=== PATIENT | male | born 1990 | race Caucasian/White ===

== ENCOUNTER 2020-10-08 16:08 | Emergency (ER) | payer OTHER, SELFPAY ==
--- NOTE | ~2020-10-08 | CT_ITS ---
EXAMINATION: CT ANGIOGRAM OF THE CHEST WITH AND WITHOUT CONTRAST (CT PULMONARY ANGIOGRAM FOR PE) CLINICAL INFORMATION: Reason for Exam Pleuritic chest pain, near syncope, rule out PE COMPARISON: Chest x-ray October 08, 2020 TECHNIQUE: Prior to contrast administration, noncontrast localization images were obtained. Subsequently, multidetector volumetric imaging was performed from the thoracic inlet to below the diaphragms following the administration of 65 mL Omnipaque 350 intravenous contrast. No contrast reaction reported Sagittal, coronal, and MIP oblique sagittal reformatted images were obtained on the CT workstation, uploaded to PACS, and reviewed. This CT examination was performed using dose optimization techniques as appropriate, variously including the following: *Automated exposure control *Adjustment of mA and/or kV according to patient size (this includes techniques or standardized protocols for targeted exams where dose is matched to indication/reason for exam; i.e. extremities or head) *Use of iterative reconstruction technique Total exam dose-length product 238 mGy-cm FINDINGS: QUALITY OF STUDY/CONTRAST BOLUS: Satisfactory. PULMONARY ARTERIES: No central or segmental pulmonary emboli. THORACIC AORTA: No aneurysm or dissection. LUNG: No focal consolidation, nodules or masses. PLEURA: No pleural effusion or pneumothorax. MEDIASTINUM: Normal heart size. No pericardial effusion. No hilar or mediastinal lymphadenopathy. No evidence of septal bowing or right heart strain. CHEST WALL/AXILLA: No axillary or internal mammary lymphadenopathy. OSSEOUS STRUCTURES: No acute or suspicious osseous abnormality. UPPER ABDOMEN: Unremarkable. No reflux of contrast into the hepatic veins to suggest elevated right heart pressures. CT/CT angio chest PE protocol IMPRESSION: Normal CT of chest. No evidence of pulmonary embolism. VTE: negative
--- NOTE | ~2020-10-08 | XR_ITS ---
EXAMINATION: XR CHEST CLINICAL INFORMATION: Chest pain COMPARISON: 05/09/2012 TECHNIQUE: Frontal view of the chest was obtained. FINDINGS: No significant abnormality is noted involving the heart, lungs, mediastinum, bony thorax or soft tissues. XR/XR chest 1V IMPRESSION: Unremarkable examination.
--- NOTE | 2020-10-08 16:17 | ECG_ITS ---
Test Reason : CHEST PAIN Blood Pressure : / mmHG Vent. Rate : 082 BPM Atrial Rate : 082 BPM P-R Int : 156 ms QRS Dur : 086 ms QT Int : 380 ms P-R-T Axes : 049 028 030 degrees QTc Int : 443 ms Normal sinus rhythm Normal ECG When compared with ECG of 11-JAN-2009 12:08, Vent. rate has increased BY 31 BPM Nonspecific T wave abnormality now evident in Inferior leads Referred By: Generic ED Physician Electronically Signed By:MELY WHITE
[2020-10-08 16:29] LABS: MANUAL DIFF FLAG NO
[2020-10-08 16:30] LABS: Basophils Percent Auto 0.2 % (0-2); Eosinophils Absolute Auto 0.1 X10*3/uL (0.0-0.4); Eosinophils Percent Auto 0.7 % (0-4); Hematocrit 40.1 % (42-52); Hemoglobin 12.9 g/dl (14.0-18.0); Imm Gran Abs Auto 0.03 X10*3/uL (0.00-0.03); Imm Gran Pct Auto 0.3 % (0.0-0.4); Lymphocytes Absolute Auto 1.6 X10*3/uL (1.2-4.9); Lymphocytes Percent Auto 16.8 % (20-40); Mean Corpuscular HGB Conc 32.2 g/dl (31.0-36.0); Mean Corpuscular Hemoglobin 26.5 pg (27.0-33.0); Mean Corpuscular Volume 82.5 fL (80-98); Mean Platelet Volume 9.7 fL (9.4-12.4); Monocytes Absolute Auto 0.4 X10*3/uL (0.1-1.2); Monocytes Percent Auto 4.7 % (2-11); Neutrophils Absolute Auto 7.2 X10*3/uL (2.0-8.3); Neutrophils Percent Auto 77.3 % (45-73); Platelet Count 311 X10*3/uL (160-400); Red Blood Count 4.86 X10*6/uL (4.60-5.80); Red Cell Distribution Width 14.1 % (11.0-16.0); White Blood Count 9.4 X10*3/uL (4.8-10.8)
[2020-10-08 16:58] VITALS: BP 117/69; PULSE 82; RESP 18; TEMP 37.1; O2SAT 98; BMI 26.4
[2020-10-08 17:03] LABS: Anion Gap 13 (12-20); Blood Urea Nitrogen 9 mg/dL (9-16); Calcium 9.6 mg/dL (8.4-10.2); Carbon Dioxide 29 mmol/L (22-29); Chloride 103 mmol/L (96-108); Creatinine Clr Calc Pharmacy 136.1; Estimated Glomerular Filt Rate > 60; Glucose Random 117 mg/dL (60-115); Potassium 4.4 mmol/L (3.3-5.1); Sodium 141 mmol/L (135-145)
[2020-10-08 17:08] LABS: Troponin-I High Sensitivity < 3.5 ng/L (<3.5-35.0)
--- NOTE | 2020-10-08 22:19 | ED_ITS ---
HPI - Chest Pain General Chief Complaint: Chest Pain Stated Complaint: chest pain, dizziness Time Seen by Provider: 10/08/20 21:58 Source: patient Mode of arrival: ambulatory Limitations: no limitations History of Present Illness HPI narrative: 30-year-old male who presents emergency department for evaluation of palpitations, chest pain and near syncope. 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 His shift started at 4:00 a.m. 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 He states that his vision be came blurred and then went peters and then black. He states that he felt he was going to pass out but did not lose consciousness. He felt like his heart was beating rapidly. He also developed a tightness in his chest. States that the 1st episode lasted approximately 2-3 minutes. He then had a 2nd episode with similar symptoms. The patient then went home. He states that the tightness in his chest persisted. He states that the tightness is located throughout his anterior chest and is worse with breathing. He denied shortness of breath or dyspnea on exertion. He states he did have a mild headache associated with the symptoms as well. The patient had a COVID-19 infection approximately 3 and half months prior. He states that he was sick for 3 weeks and felt short of breath and had dyspnea on exertion. He has not had any pain or swelling in his lower extremities. He states that his father has had lower extremity DVTs. The patient believes that blood clots may run in his family but cannot be more specific. Related Data Allergies Allergy/AdvReac Type Severity Reaction Status Date / Time No Known Allergies Allergy Verified 10/08/20 16:57 Review of Systems Review of Systems: Yes all other systems are reviewed and are negative PENDING SALE TO [facility] Past Medical History PENDING SALE TO [facility] Narrative: Past medical history: History heroin use disorder, the patient is currently on methadone and has not used heroin in 4 years. Past surgical history: None. 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 States that he vapes nicotine 20 times a day. He denies alcohol use. Patient states that he is in recovery from heroin use and is not in used in 4 years. Social History Social History Advance Directives: No Advance Directives Information Provided: Yes Physical Exam Vital Signs: Vital Signs: Last Vital Signs Temp 98.7 F 10/08/20 16:58 Pulse 62 10/09/20 00:05 Resp 16 10/09/20 00:05 BP 129/69 10/09/20 00:05 Pulse Ox 98 10/09/20 00:05 Body Mass Index 26.4 Const: General: cooperative and no acute distress Orientation/consciousness: oriented to person and oriented to place Limitations: no limitations HENMT: Head: Yes normal to inspection, Yes normocephalic and Yes atraumatic Ears: external ears normal General nose exam: Normal external nose present Face and sinus: Yes normal facial exam Mouth: Normal oral and palatal mucosa present Throat: Yes posterior oropharynx normal Eyes: General: appearance normal, both eyes and all related structures Pupils: Equal, round and reactive pupils present Neck: Neck: Yes normal visual inspection, Yes no lymphadenopathy, Yes trachea midline and Yes supple Chest: Chest palpation & inspection: normal inspection of the chest and normal palpation of entire chest wall Resp: Effort & Inspection: normal respiratory effort and able to speak in complete sentences Auscultation: clear to auscultation bilaterally Cardio: Rate: regular rate Rhythm: regular rhythm Heart sounds: S1 normal heart sound present, S2 normal heart sound present and no murmurs GI: Inspection: Yes normal to inspection Palpation (GI): Soft to palpation, nontender and no guarding Auscultation: normal bowel sounds : General: Yes no CVA tenderness Back/Spine/Pelvis: Back: no CVA tenderness Skin: General skin exam: no rashes or lesions noted Neuro: General: oriented to person and oriented to place Cranial nerves: Yes CN's II-XII intact bilaterally and Yes Equal, round and reactive pupils present Cognition (Neuro): normal cognition Motor exam (neuro): 5/5 motor strength present throughout Extrem: General: Yes normal to inspection Psych: Appearance: grossly normal Speech and movement: Normal speech and movement present Affect: normal affect Attitude: cooperative Thought process: Normal thought process present Thought content: Normal thought content present Course Course Course Narrative: 30-year-old male who presents emergency department for evaluation of 2 near syncopal episodes with change in vision, tachycardia, shortness of breath and pleuritic chest pain. The patient had a COVID-19 infection 3 and half months prior. States that he was sick for 3 weeks but did not require hospitalization. The patient's vital sign were normal. Physical examination was unremarkable. Twelve EKG revealed no significant abnormalities. Chest x-ray was normal. IM concerned this patient may have a pulmonary embolism as cause of his symptoms therefore a CT pulmonary angiogram PE protocol was ordered. 0005: The patient's CT pulmonary angiogram was negative for PE. The patient's symptoms are consistent with near syncope. The patient will need a palpitation workup as an outpatient and I did discuss this with him. He was advised to avoid caffeine and to make sure that he stays hydrated and eat prior to going to work. The patient was discharged home. The patient was given verbal and printed instructions prior to discharge. The patient was advised to follow-up with his PCP in 2 days and to return to the emergency department if his symptoms get worse or if he develops any new symptoms that are concerning to him. MDM - Chest Pain Lab Data Result diagrams: 10/08/20 16:10/08/20 16: Labs: Lab Results 10/08/20 10/08/20 10/08/20 Range/Units 16: 16: 16:22 WBC 9.4 (4.8-10.8) X10*3/uL RBC 4.86 (4.60-5.80) X10*6/uL Hgb 12.9 L (14.0-18.0) g/dl Hct 40.1 L (42-52) % MCV 82.5 (80-98) fL MCH 26.5 L (27.0-33.0) pg MCHC 32.2 (31.0-36.0) g/dl RDW 14.1 (11.0-16.0) % Plt Count 311 (160-400) X10*3/uL MPV 9.7 (9.4-12.4) fL Immature Gran % (Auto) 0.3 (0.0-0.4) % Neut % (Auto) 77.3 H (45-73) % Lymph % (Auto) 16.8 L (20-40) % [place] % (Auto) 4.7 (2-11) % Eos % (Auto) 0.7 (0-4) % Baso % (Auto) 0.2 (0-2) % Lymph # (Auto) 1.6 (1.2-4.9) X10*3/uL [place] # (Auto) 0.4 (0.1-1.2) X10*3/uL Eos # (Auto) 0.1 (0.0-0.4) X10*3/uL Baso # (Auto) 0.0 (0.0-0.2) X10*3/uL Abs Immat Gran (auto) 0.03 (0.00-0.03) X10*3/uL Absolute Neuts (auto) 7.2 (2.0-8.3) X10*3/uL Absolute Nucleated RBC 0.000 (0.0-0.012) X10*3/uL Nucleated RBC % (auto) 0.0 (0.0-0.2) /100WBC Sodium 141 (135-145) mmol/L Potassium 4.4 (3.3-5.1) mmol/L Chloride 103 (96-108) mmol/L Carbon Dioxide 29 (22-29) mmol/L Anion Gap 13 (12-20) BUN 9 (9-16) mg/dL Creatinine 0.88 (0.5-1.4) mg/dL Estim Creat Clear Calc 136.1 Estimated GFR > 60 Random Glucose 117 H (60-115) mg/dL Calcium 9.6 (8.4-10.2) mg/dL Troponin I High Sens < 3.5 (<3.5-35.0) ng/L ECG Data ECG #1: Attestation: I personally reviewed and interpreted this ECG as follows: Interpretation: 1612: Normal sinus rhythm with a rate of 82, normal ID interval, QRS duration and QTC interval, inverted T-wave in lead 3 and V1, no ST segment elevation, no ST segment depression, no PACs, no PVCs. This is a normal EKG. Discharge Plan Discharge Clinical Impression: Chest pain, Near syncope, Heart palpitations Patient Disposition: Home, Self-Care Instructions: Heart Palpitations (ED), Hyperventilation (ED) Additional Instructions: Your blood work was normal. Your EKG was unremarkable. Your chest x-ray was normal. The CT chest pulmonary angiogram revealed no pulmonary embolism or other abnormalities of your lungs. These normal tests are reassuring. When you feel your heartbeat this is called palpitations. You will need to follow-up with her doctor for further evaluations of your palpitations. You should avoid using caffeine. Increase your fluid intake to prevent dehydration. Make sure you eat before you go to work. Follow-up with your doctor in 2 days. Please return to the emergency department if your symptoms get worse or if you develop any symptoms that are concerning to you.
[2020-10-08] MEDS: 0.9 % Sodium Chloride 1,000 ML 999 ML IV (22:27)
[2020-10-08] MEDS: iohexoL 350 MG/ML 100 ML INFUS..BTL 65 ML IV (23:22)
[2020-10-09 00:05] VITALS: BP 129/69; PULSE 62; RESP 16; O2SAT 98
== END 2020-10-09 00:53 | disposition home or self-care (01) ==
PROVIDERS: Emergency Provider Emergency Medicine Emergency Medical Services
DX: R07.9 Chest pain, unspecified (principal); R55 Syncope and collapse; R00.2 Palpitations; R06.02 Shortness of breath; F11.20 Opioid dependence, uncomplicated; F17.290 Nicotine dependence, other tobacco product, uncomplicated; Z86.16 Personal history of COVID-19
CPT/HCPCS: 36415; 71045; 71275; 80048; 84484; 85025; 93005; 96360; 99283; 99284; Q9967

== ENCOUNTER 2020-10-15 22:48 | Emergency (ER) | payer OTHER, SELFPAY ==
--- NOTE | 2020-10-15 | ECG_ITS ---
Test Reason : DIZZINESS Blood Pressure : / mmHG Vent. Rate : 061 BPM Atrial Rate : 061 BPM P-R Int : 146 ms QRS Dur : 088 ms QT Int : 428 ms P-R-T Axes : 036 042 020 degrees QTc Int : 430 ms Normal sinus rhythm Normal ECG When compared with ECG of 08-OCT-2020 16:12, No significant change was found Referred By: Generic ED Physician Electronically Signed By:MELY WHITE
[2020-10-15 22:51] VITALS: BP 121/77; PULSE 74; RESP 18; TEMP 36.8; O2SAT 96; BMI 27.1
--- NOTE | 2020-10-15 23:30 | ED.DIZZY ---
HPI - Dizziness General Chief Complaint: Dizziness Stated Complaint: numbness in body Time Seen by Provider: 10/15/20 23:30 Source: patient Mode of arrival: ambulatory Limitations: no limitations History of Present Illness HPI Narrative: Patient can male with history of COVID 3 months ago under lot of stress was seen here 1 week ago for palpitation workup including CTA chest was negative comes here now as still feels dizzy unable to sleep sleeping only for 3-4 hours a night feel anxious sometimes with multiple complaints Related Data Previous Rx's Medication Instructions Recorded lorazepam 1 mg tablet (Ativan) 1 mg PO BEDTIME PRN #10 tab 10/15/20 Allergies Allergy/AdvReac Type Severity Reaction Status Date / Time No Known Allergies Allergy Verified 10/15/20 22:51 Review of Systems Review of Systems: Yes all other systems are reviewed and are negative [facility] Past Medical History Medical History Anxiety COVID-19 Opiate addiction Social History Social History Advance Directives: No Advance Directives Information Provided: No Physical Exam Vital Signs: Vital Signs: Last Vital Signs Temp 98.2 F 10/15/20 22:51 Pulse 74 10/15/20 22:51 Resp 18 10/15/20 22:51 BP 121/77 10/15/20 22:51 Pulse Ox 96 10/15/20 22:51 Body Mass Index 27.1 Appearance: Alert. Oriented X3. No acute distress. Anxious Eyes: PERRLA, No Nystagmus ENT: Pharynx normal. Oral Mucosa moist Neck: Normal inspection. Neck supple. CVS: Normal heart rate and rhythm. Pulses normal. Respiratory: No respiratory distress. Equal air entry bilateral, no wheezing/rales/rhonchi Abdomen: Soft and nontender. Skin: Skin warm and dry. Normal skin color. Normal skin turgor. Extremities: No lower extremity edema. No calf tenderness Neuro: Oriented X 3. No motor deficit. No sensory deficit.No cerebellar signs , cranial nerves II-XII intact MDM - Dizziness MDM Narrative Medical decision making narrative: Patient's symptoms likely from anxiety and lack of sleep will discharge patient home on Ativan Discharge Plan Discharge Clinical Impression: Anxiety Patient Disposition: Home, Self-Care Instructions: Anxiety (ED) Additional Instructions: Rest at home take medication to sleep and relax follow up with PCP Prescriptions: New lorazepam [Ativan] 1 mg tablet 1 mg PO BEDTIME PRN (Reason: anxiety) Qty: 10 RF: 0 Interventions: ED Discharge Assessment Last Done: 10/15/20 23:46 Discharge Date/Time: 10/15/20 23:48
== END 2020-10-15 23:48 | disposition home or self-care (01) ==
PROVIDERS: Emergency Provider Internal Medicine
DX: F41.9 Anxiety disorder, unspecified (principal); R42 Dizziness and giddiness; F17.210 Nicotine dependence, cigarettes, uncomplicated
CPT/HCPCS: 93005; 99283

== ENCOUNTER 2020-10-26 05:37 | Emergency (ER) | payer OTHER, SELFPAY ==
[2020-10-26 05:42] VITALS: BP 106/72; PULSE 81; RESP 18; TEMP 36.4; O2SAT 97; BMI 27.1
--- NOTE | 2020-10-26 06:09 | PC.NURSE ---
pt reporting that he been having headaches, neck pain that comes on all of a sudden. He been here recently for the same thing last week. He was told her had panic attacks. he was given benzos but her can not it due to being on Methadone. Pt reports hitting himself on the head at work. pt is sitting quietly waiting to be seen.
[2020-10-26 06:33] VITALS: RESP 16
--- NOTE | 2020-10-26 07:02 | ED.ANXIETY ---
HPI - Anxiety General Chief Complaint: Anxiety Stated Complaint: migraines, neck pain Time Seen by Provider: 10/26/20 07:00 Source: patient Mode of arrival: ambulatory History of Present Illness HPI narrative: 30-year-old male on methadone program presents with continued dizziness and having had experienced panic attacks approximately 2 weeks ago as well as chest pain which was fully evaluated. Patient denies any associated fever, chills, chest pain, shortness of breath. On triage note states that patient has not been taking the Ativan due to him being on the methadone program. Related Data Previous Rx's Medication Instructions Recorded lorazepam 1 mg tablet (Ativan) 1 mg PO BEDTIME PRN #10 tab 10/15/20 hydroxyzine HCl 25 mg tablet 25 mg PO BID PRN #7 tab 10/26/20 ketorolac 10 mg tablet 10 mg PO Q6H PRN 5 Days #20 tab 10/26/20 Allergies Allergy/AdvReac Type Severity Reaction Status Date / Time No Known Allergies Allergy Verified 10/26/20 05:41 Review of Systems Review of Systems: Pertinent positives and negatives as stated in HPI 10 point review of systems is otherwise negative. PMFSH Past Medical History Source: nursing notes reviewed Medical History Anxiety COVID-19 Opiate addiction Social History Social History Alcohol intake: never Patient Tobacco Use Status: Current someday Tobacco user Smoked in Last 30 Days: Yes Use of substances other than those prescribed or required for medical reasons: No Advance Directives: No Advance Directives Information Provided: Yes Physical Exam Vital Signs: Vital Signs: Last Vital Signs Temp 97.5 F 10/26/20 05:42 Pulse 81 10/26/20 05:42 Resp 16 10/26/20 06:33 BP 106/72 10/26/20 05:42 Pulse Ox 97 10/26/20 05:42 Body Mass Index 27.1 VITAL SIGNS: Reviewed. GENERAL: Well developed, well nourished, in no acute distress. HEAD: Normocephalic/atraumatic EYES: PERRLA, EOMI OROPHARYNX: no oral lesions noted, posterior pharynx clear LUNGS: Normal breath sounds. No adventitious sounds or accessory muscle use. SpO2<97> CARDIOVASCULAR: Regular rate and rhythm without noted murmurs ABDOMEN: Soft, non-tender, non-distended with bowel sounds. SKIN: Inspection of the skin reveals no rashes NEUROLOGIC: Alert and oriented x 4. Strength and sensation to light touch were grossly intact x 4. Course Course Course Narrative: 30-year-old male with history and clinical presentation consistent with possible cluster, migraine type headaches and patient has scheduled primary care provider appointment on Wednesday of this week. There are no focal deficits noted and review of all prior workups was thorough. On review of investigations for possible strep or COVID-19 there are no acute findings to suggest current infection and on re-evaluation after patient received Tylenol and Toradol he reports complete resolution of his discomfort. He will be discharged in stable condition with alternative to Ativan. MDM - Anxiety Lab Data Labs: Lab Results 10/26/20 10/26/20 Range/Units 08:14 08:18 COVID-19 (BRYAN) Negative (Negative) COVID-19 Clin Com See Note S. pyogenes GrpA MEGHAN Negative (Negative) Discharge Plan Discharge Clinical Impression: Headache Patient Disposition: Home, Self-Care Instructions: General Headache (ED) Additional Instructions: Follow-up with your primary care provider as scheduled on Wednesday. Tylenol 1000 mg, orally, every 6 hours as needed for headache control. Do not exceed 4000 mg within 24 hours. Lidocaine patch, available [id number], this may provide additional pain relief across your left shoulder and should be applied as directed on the outside packaging. Return to the ER for acute worsening of symptoms. Prescriptions: New hydroxyzine HCl 25 mg tablet 25 mg PO BID PRN (Reason: anxiety) Qty: 7 RF: 0 ketorolac 10 mg tablet 10 mg PO Q6H PRN (Reason: pain) 5 Days Qty: 20 RF: 0 No Action lorazepam [Ativan] 1 mg tablet 1 mg PO BEDTIME PRN (Reason: anxiety) Qty: 10 RF: 0 Referrals: Physician,Nonstaff [Primary Care Provider] - 2 days
[2020-10-26] MEDS: Acetaminophen 325 MG TABLET 975 MG PO (07:22)
[2020-10-26] MEDS: Ketorolac Tromethamine 15 MG/ML VIAL IM (07:23)
[2020-10-26 08:34] LABS: COVID-19 Test Negative (Negative)
[2020-10-26 08:35] LABS: IDNOW Serial# 9DD0AD1C; Strep A Nucleic Acid Negative (Negative)
[2020-10-26 09:40] VITALS: BP 103/59; PULSE 65; RESP 18; TEMP 37.1; O2SAT 98
== END 2020-10-26 09:43 | disposition home or self-care (01) ==
PROVIDERS: Emergency Provider Student in an Organized Health Care Education/Training Program
DX: R51.9 Headache, unspecified (principal); Z20.822 Contact with and (suspected) exposure to COVID-19; F11.20 Opioid dependence, uncomplicated; F17.210 Nicotine dependence, cigarettes, uncomplicated
CPT/HCPCS: 36415; 87635; 87651; 96372; 99284; J1885

== ENCOUNTER 2020-11-15 14:33 | Emergency (ER) | payer OTHER, SELFPAY ==
--- NOTE | ~2020-11-15 | XR_ITS ---
EXAMINATION: CHEST 2 VIEWS CLINICAL INFORMATION: chest pain . COMPARISON: 10/08/2020. TECHNIQUE: PA and lateral views of the chest obtained. FINDINGS: The lungs are well expanded. No focal infiltrate, effusion, edema, or pneumothorax. Cardiac and mediastinal silhouettes are within normal limits for technique. No acute bony abnormality seen with an old healed posterolateral left seventh rib fracture again noted XR/XR chest 2V IMPRESSION: No evidence of acute disease
--- NOTE | 2020-11-15 14:36 | ECG_ITS ---
Test Reason : CHEST PAIN Blood Pressure : / mmHG Vent. Rate : 067 BPM Atrial Rate : 067 BPM P-R Int : 168 ms QRS Dur : 084 ms QT Int : 404 ms P-R-T Axes : 048 025 041 degrees QTc Int : 426 ms Normal sinus rhythm Normal ECG When compared with ECG of 15-OCT-2020 23:13, No significant change was found Referred By: Generic ED Physician Electronically Signed By:MELY WHITE
[2020-11-15 15:21] VITALS: BP 123/74; PULSE 73; RESP 18; TEMP 36.9; O2SAT 100; BMI 26.4
--- NOTE | 2020-11-15 17:26 | ED.GENADULT ---
HPI - General Adult General Chief complaint: General Medical Stated complaint: CHEST PAIN RAPID HEART BEAT Time Seen by Provider: 11/15/20 17:06 Source: patient Mode of arrival: ambulatory Limitations: no limitations History of Present Illness HPI narrative: 30-year-old male with a history of panic attacks and chest pain presents for sharp left-sided chest pain that has been intermittent for the last week. The chest pain comes and goes and lasts for few minutes. It is sharp and he has mild left arm tingling. No associated nausea, diaphoresis, or shortness of breath. Patient also has neck and back pain for the last month. 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 States his chest pain started after he was using the forklift. No history of hypertension or hyperlipidemia, patient is a former smoker. Onset (ago): week(s) (1) Location: chest Radiation: extremity Severity: mild Severity scale (1-10): 3 Quality: sharp Pain Consistency: intermittent Relieving factors: none Associated symptoms: denies other symptoms Treatments prior to arrival: none Related Data Previous Rx's Medication Instructions Recorded lorazepam 1 mg tablet (Ativan) 1 mg PO BEDTIME PRN #10 tab 10/15/20 hydroxyzine HCl 25 mg tablet 25 mg PO BID PRN #7 tab 10/26/20 ketorolac 10 mg tablet 10 mg PO Q6H PRN 5 Days #20 tab 10/26/20 ibuprofen 600 mg tablet 600 mg PO Q8H PRN #30 tab 11/15/20 Allergies Allergy/AdvReac Type Severity Reaction Status Date / Time No Known Allergies Allergy Verified 10/29/20 16:10 Review of Systems Constitutional: Constitutional: Denies body ache(s), Denies chills, Denies fatigue, Denies fever(s), Denies headache(s), Denies malaise and Denies weakness Eyes: Eyes: Denies diplopia ENT: Denies vertigo, Denies dizziness, Denies otalgia, Denies headache(s), Denies mouth pain, Reports neck pain, Denies post nasal drip, Denies sinus pain, Denies sinus pressure, Denies sore throat and Denies throat swelling Cardiovascular: Cardiovascular: Reports chest pain, Denies chest pain with activity, Denies Epigastric Pain, Denies syncope, Denies rapid heart rate, Denies lightheadedness, Reports radiating jaw, neck or arm pain, Denies palpitations, Denies dyspnea, Denies dyspnea on exertion and Denies orthopnea Respiratory: Respiratory: Denies chest congestion, Denies cough, Denies dyspnea and Denies dyspnea on exertion Musculoskeletal: Musculoskeletal: Reports back pain, Reports neck pain and Reports radiating pain into limb Neurologic: Denies confusion, Denies vertigo, Denies dizziness, Denies syncope, Denies headache(s) and Denies weakness Psychiatric: Psychiatric: Denies anxiety, Denies confusion and Denies depression Endocrine: Endocrine: Denies fatigue and Denies palpitations Allergic/Immunologic: Allergic/Immunologic: Denies throat swelling PMFSH Past Medical History Medical History Anxiety COVID-19 Opiate addiction Social History Social History Alcohol intake: never Patient Tobacco Use Status: Current someday Tobacco user Advance Directives: No Advance Directives Information Provided: Yes Physical Exam Vital Signs: Vital Signs: Last Vital Signs Temp 98.4 F 11/15/20 15:21 Pulse 79 11/15/20 18:12 Resp 16 11/15/20 18:12 BP 109/69 11/15/20 18:12 Pulse Ox 97 11/15/20 18:12 Body Mass Index 26.4 Const: General: No confusion Nutritional Appearance: well nourished Orientation/consciousness: No confusion Limitations: no limitations Eyes: Conjunctivae: conjunctivae normal Pupils: Equal, round and reactive pupils present EOM: EOMs intact bilaterally Neck: Neck: Yes full ROM, Yes no lymphadenopathy and Yes supple Resp: Effort & Inspection: normal respiratory effort and able to speak in complete sentences Auscultation: clear to auscultation bilaterally, no crackles, no rales, no rhonchi and no wheezes Cardio: Rate: regular rate Rhythm: regular rhythm Heart sounds: S1 normal heart sound present and S2 normal heart sound present Back/Spine/Pelvis: Cervical Spine: normal cervical lordosis, cervical ROM normal, No Cervical spine tenderness and No step off deformity Thoracic/Lumbar Spine: straight leg raise negative bilaterally, No pain with thoraco-lumbar ROM, thoraco-lumbar spasm bilaterally in the mid thoracic, No thoracic spinal tenderness and No lumbar spinal tenderness Skin: General skin exam: no rashes or lesions noted Neuro: General: No confusion Cranial nerves: Yes Equal, round and reactive pupils present Extrem: General: Yes normal to inspection and Yes full ROM Psych: Appearance: grossly normal Affect: normal affect Attitude: cooperative Thought process: Normal thought process present Course Course Course Narrative: 30-year-old male with a past medical history of anxiety and panic attacks presents for 1 week of intermittent chest pain. Patient is on methadone, so cannot take Ativan for his anxiety. Patient does take hydroxyzine occasionally, and says it helps with the chest pain. EKG shows no acute ischemia. Will get chest x-ray and troponin. Reevaluation(s) Reevaluation #1: Chest x-ray and troponin are both negative. We only need 1 troponin as patient has been having symptoms for 1 week. Patient is not hypoxic, tachycardic, tachypneic, I do not suspect PE. Discussed with patient that he can use hydroxyzine liberally, discharged with follow-up with primary care Medical Decision Making Lab Data Labs: Lab Results 11/15/20 Range/Units 18:07 Troponin I High Sens < 3.5 (<3.5-35.0) ng/L ECG Data Interpretation: Normal sinus at a rate of 67. MS interval 168, QRS 84, QTC is 426. Normal axis. No ST elevations or depressions, no T-wave changes. Discharge Plan Discharge Clinical Impression: Chest pain Qualifiers: Chest pain type: unspecified Qualified Code(s): R07.9 - Chest pain, unspecified Patient Disposition: Home, Self-Care Instructions: Chest Pain (ED) Additional Instructions: Please call your primary care on Wednesday. I would like you to be seen within the next 2 weeks. Please return for any chest pain, shortness of breath, or new or concerning symptoms Prescriptions: New ibuprofen 600 mg tablet 600 mg PO Q8H PRN (Reason: pain) Qty: 30 RF: 0 No Action hydroxyzine HCl 25 mg tablet 25 mg PO BID PRN (Reason: anxiety) Qty: 7 RF: 0 ketorolac 10 mg tablet 10 mg PO Q6H PRN (Reason: pain) 5 Days Qty: 20 RF: 0 lorazepam [Ativan] 1 mg tablet 1 mg PO BEDTIME PRN (Reason: anxiety) Qty: 10 RF: 0
[2020-11-15] MEDS: Ibuprofen 600 MG TABLET PO (18:11)
[2020-11-15 18:12] VITALS: BP 109/69; PULSE 79; RESP 16; O2SAT 97
[2020-11-15 18:33] LABS: Troponin-I High Sensitivity < 3.5 ng/L (<3.5-35.0)
== END 2020-11-15 19:17 | disposition home or self-care (01) ==
PROVIDERS: Physician Assistant; Emergency Provider Emergency Medicine
DX: R07.9 Chest pain, unspecified (principal); F43.0 Acute stress reaction; Z79.899 Other long term (current) drug therapy; Z87.891 Personal history of nicotine dependence
CPT/HCPCS: 36415; 71046; 84484; 93005; 99283; 99284

== ENCOUNTER 2020-11-17 12:16 | Emergency (ER) | payer OTHER, SELFPAY ==
--- NOTE | ~2020-11-17 | CT_ITS ---
EXAMINATION: CT CHEST AND CT ABDOMEN PELVIS WITHOUT CONTRAST CLINICAL INFORMATION: Feels a lump on the left lower rib/chest. COMPARISON: Chest x-ray 11/15/2020 TECHNIQUE: 5 mm thin axial and reformatted 3 mm thin sagittal neck coronal images of chest, abdomen and pelvis were obtained without contrast. DLP 919. FINDINGS: Chest: The lungs are well expanded and clear of acute pneumonic process. There is no pulmonary nodule, mass or consolidation. There is no pleural thickening, effusion or calcification. The heart size and the great vessels are normal caliber. There is residual thymus in the anterior mediastinum. No abnormal size mediastinal lymph nodes or mass seen. The central trachea and the bronchi appear widely patent. There are small shotty benign lymph nodes in the axilla. The chest wall is unremarkable. Bone windows reveal no visible rib fracture or bony abnormality. Abdomen and pelvis: Visualized liver is normal size, density and contour. No focal lesion or intrahepatic ductal dilatation seen. The gallbladder is unremarkable. Visualized pancreas spleen and adrenal glands are unremarkable. Both kidneys are normal size, shape and position. No radiopaque renal calculi or hydronephrosis. The abdominal aorta is normal in its course and caliber. No vertebral lymph nodes or mass seen. There is scattered stool and gas seen throughout the colon without any distention. There is recently ingested food in a mildly distended stomach. The small bowel loops are normal caliber. Appendix is normal caliber. No free air or free fluid seen. Imaging to the pelvis reveals unremarkable bladder. No free fluid. No abnormal pelvic lymph nodes. Bone windows reveal no lytic or sclerotic process seen. CT/CT abdomen pelvis wo con IMPRESSION: No acute process seen in the chest, abdomen or pelvis. Especially there is no abnormality seen along the left thoracic cavity. No fracture or bony deformity visualized along the left lower ribs. There is no lung contusion. No chest wall soft tissue edema.
[2020-11-17 12:18] VITALS: BP 117/75; PULSE 76; RESP 18; TEMP 36.7; O2SAT 99; BMI 26.4
--- NOTE | 2020-11-17 12:50 | ECG_ITS ---
Test Reason : NUMBNESS/TINGLING Blood Pressure : / mmHG Vent. Rate : 065 BPM Atrial Rate : 065 BPM P-R Int : 170 ms QRS Dur : 088 ms QT Int : 412 ms P-R-T Axes : 060 043 036 degrees QTc Int : 428 ms Normal sinus rhythm with sinus arrhythmia Normal ECG When compared with ECG of 15-NOV-2020 15:21, No significant change was found Referred By: Ian Prajapati Electronically Signed By:MELY WHITE
[2020-11-17 13:15] LABS: MANUAL DIFF FLAG NO
[2020-11-17 13:17] LABS: Basophils Percent Auto 0.4 % (0-2); Eosinophils Absolute Auto 0.2 X10*3/uL (0.0-0.4); Hematocrit 37.8 % (42-52); Hemoglobin 12.3 g/dl (14.0-18.0); Imm Gran Abs Auto 0.02 X10*3/uL (0.00-0.03); Imm Gran Pct Auto 0.3 % (0.0-0.4); Lymphocytes Absolute Auto 2.1 X10*3/uL (1.2-4.9); Lymphocytes Percent Auto 30.3 % (20-40); Mean Corpuscular HGB Conc 32.5 g/dl (31.0-36.0); Mean Corpuscular Hemoglobin 26.9 pg (27.0-33.0); Mean Corpuscular Volume 82.7 fL (80-98); Mean Platelet Volume 9.6 fL (9.4-12.4); Monocytes Absolute Auto 0.4 X10*3/uL (0.1-1.2); Monocytes Percent Auto 6.2 % (2-11); Neutrophils Absolute Auto 4.2 X10*3/uL (2.0-8.3); Neutrophils Percent Auto 59.8 % (45-73); Platelet Count 256 X10*3/uL (160-400); Red Blood Count 4.57 X10*6/uL (4.60-5.80); Red Cell Distribution Width 13.7 % (11.0-16.0)
[2020-11-17 13:31] LABS: Alanine Aminotransferase 23 U/L (0-40); Albumin Level 4.1 g/dL (3.5-5.0); Alkaline Phosphatase 66 U/L (39-117); Anion Gap 13 (12-20); Aspartate Amino Transferase 21 U/L (5-37); Bilirubin Total 0.3 mg/dL (0.0-1.0); Blood Urea Nitrogen 13 mg/dL (9-16); Calcium 9.2 mg/dL (8.4-10.2); Carbon Dioxide 27 mmol/L (22-29); Chloride 104 mmol/L (96-108); Estimated Glomerular Filt Rate > 60; Glucose Random 91 mg/dL (60-115); Potassium 3.5 mmol/L (3.3-5.1); Sodium 140 mmol/L (135-145); Total Protein 6.8 g/dL (6.5-8.0)
[2020-11-17 13:35] LABS: Troponin-I High Sensitivity < 3.5 ng/L (<3.5-35.0)
--- NOTE | 2020-11-17 14:25 | ED_ITS ---
HPI - General Adult General Chief complaint: General Medical Stated complaint: lump on abd Time Seen by Provider: 11/17/20 12:35 Source: patient Mode of arrival: ambulatory Limitations: no limitations History of Present Illness HPI narrative: Patient presents to the ED for painful lump on left upper abdomen/left lower rib area. Patient states area also worse on movement. Patient denies any chest pain or shortness of breath. Patient denies any fever or chills. Patient denies any swelling of lower extremities, calf pain, coughing up blood, chest pain on inspiration, recent long travel, recent surgery, recent trauma, estrogen use or, any history of blood clots. Related Data Previous Rx's Medication Instructions Recorded lorazepam 1 mg tablet (Ativan) 1 mg PO BEDTIME PRN #10 tab 10/15/20 hydroxyzine HCl 25 mg tablet 25 mg PO BID PRN #7 tab 10/26/20 ketorolac 10 mg tablet 10 mg PO Q6H PRN 5 Days #20 tab 10/26/20 ibuprofen 600 mg tablet 600 mg PO Q8H PRN #30 tab 11/15/20 Allergies Allergy/AdvReac Type Severity Reaction Status Date / Time No Known Allergies Allergy Verified 11/17/20 12:17 Review of Systems Review of Systems: Yes all other systems are reviewed and are negative Constitutional: Constitutional: Reports as per HPI and Reports no additional constitutional complaints Eyes: Eyes: Reports as per HPI and Reports no additional eye complaints ENT: Reports system reviewed and no additional complaints, except as documented and Reports as per HPI Cardiovascular: Cardiovascular: Reports as per HPI and Reports no additional cardiovascular complaints Respiratory: Respiratory: Reports as per HPI and Reports no additional respiratory complaints Gastrointestinal: Gastrointestinal: Reports as per HPI and Reports no additional gastrointestinal complaints Comments: lump on left upper abdominal area Musculoskeletal: Musculoskeletal: Reports no additional musculoskeletal complaints and Reports as per HPI Neurologic: Reports system reviewed and no additional complaints, except as documented and Reports as per HPI Psychiatric: Psychiatric: Reports no additional psychiatric complaints and Reports as per HPI PMFSH Past Medical History Medical History Anxiety COVID-19 Opiate addiction Social History Social History Alcohol intake: never Patient Tobacco Use Status: Current someday Tobacco user Advance Directives: No Advance Directives Information Provided: No Physical Exam Vital Signs: Vital Signs: Last Vital Signs Temp 98.1 F 11/17/20 12:18 Pulse 76 11/17/20 12:18 Resp 18 11/17/20 12:18 BP 117/75 11/17/20 12:18 Pulse Ox 99 11/17/20 12:18 Body Mass Index 26.4 Const: General: cooperative, healthy appearing, comfortable, no acute distress, well developed, alert and awake Orientation/consciousness: patient oriented x3 HENMT: Head: Yes normal to inspection, Yes No palpable skull fracture present, Yes normocephalic, Yes atraumatic and No abrasion Eyes: General: appearance normal, both eyes and all related structures Neck: Neck: Yes normal visual inspection, Yes full ROM, Yes no lymphadenopathy, Yes no meningeal signs, Yes trachea midline, Yes supple and No tender Chest: Chest palpation & inspection: normal inspection of the chest and normal palpation of entire chest wall Chest/axillae images: 1. tenderness on palpation and range of motion of toros. negative for any erythema, warmth,mass, fluctulance, or obvious mass on inspect ion. . Negative for any ecchymosis. Resp: Effort & Inspection: normal respiratory effort and able to speak in complete sentences Auscultation: clear to auscultation bilaterally Cardio: Jugular venous distension: no JVD Heart sounds: S1 normal heart sound present and S2 normal heart sound present GI: Inspection: Yes normal to inspection and No abdominal wall ecchymosis Palpation (GI): Tenderness to palpation present (GI) in the LUQ; Negative for not in the LLQ and not in the RLQ, no guarding and not rigid Abdomen image: 1. tenderness on palpation. negative for any swelling, redness, fever, or palpable mass on palpation. negative for any ecchymosis. : General: No CVA tenderness and Yes no CVA tenderness Back/Spine/Pelvis: Back: no CVA tenderness, No CVA tenderness and No back tenderness Skin: General skin exam: no rashes or lesions noted and elasticity normal Neuro: General: patient oriented x3, gait normal, no meningeal signs and CN's II-XI intact bilaterally Cranial nerves: Yes CN's II-XII intact bilaterally Extrem: Other: Lower extremities negative for any swelling, calf pain, or redness. Upper extremities normal. General: Yes normal to inspection and Yes full ROM Psych: Appearance: grossly normal, well kempt and not disheveled Course Course Course Narrative: patient denies any chest pain will do EKG cardiac evaluation. Send patient for dry chest abdomen. Reevaluation(s) Reevaluation #1: EKG negative STEMI. Troponin came back negative. Chest CT and abdominal CT negative for any fractures or any hernia or any other mass. Patient not in any distress. Not suspecting PE. Patient states he has some Motrin home he will take as prescription. Patient thinks he might have pulled a muscle while lifting heavy boxes Time: 00:50 Medical Decision Making MDM Narrative Medical decision making narrative: muscle strain Lab Data Result diagrams: 11/17/20 13:06 11/17/20 13:06 Labs: Lab Results 11/17/20 11/17/20 11/17/20 Range/Units 13:06 13:06 13:06 WBC 7.0 (4.8-10.8) X10*3/uL RBC 4.57 L (4.60-5.80) X10*6/uL Hgb 12.3 L (14.0-18.0) g/dl Hct 37.8 L (42-52) % MCV 82.7 (80-98) fL MCH 26.9 L (27.0-33.0) pg MCHC 32.5 (31.0-36.0) g/dl RDW 13.7 (11.0-16.0) % Plt Count 256 (160-400) X10*3/uL MPV 9.6 (9.4-12.4) fL Immature Gran % (Auto) 0.3 (0.0-0.4) % Neut % (Auto) 59.8 (45-73) % Lymph % (Auto) 30.3 (20-40) % [place] % (Auto) 6.2 (2-11) % Eos % (Auto) 3.0 (0-4) % Baso % (Auto) 0.4 (0-2) % Lymph # (Auto) 2.1 (1.2-4.9) X10*3/uL [place] # (Auto) 0.4 (0.1-1.2) X10*3/uL Eos # (Auto) 0.2 (0.0-0.4) X10*3/uL Baso # (Auto) 0.0 (0.0-0.2) X10*3/uL Abs Immat Gran (auto) 0.02 (0.00-0.03) X10*3/uL Absolute Neuts (auto) 4.2 (2.0-8.3) X10*3/uL Absolute Nucleated RBC 0.000 (0.0-0.012) X10*3/uL Nucleated RBC % (auto) 0.0 (0.0-0.2) /100WBC Sodium 140 (135-145) mmol/L Potassium 3.5 D (3.3-5.1) mmol/L Chloride 104 (96-108) mmol/L Carbon Dioxide 27 (22-29) mmol/L Anion Gap 13 (12-20) BUN 13 (9-16) mg/dL Creatinine 0.97 (0.5-1.4) mg/dL Estim Creat Clear Calc 120.0 Estimated GFR > 60 Random Glucose 91 (60-115) mg/dL Calcium 9.2 (8.4-10.2) mg/dL Total Bilirubin 0.3 (0.0-1.0) mg/dL AST 21 (5-37) U/L ALT 23 (0-40) U/L Alkaline Phosphatase 66 (39-117) U/L Troponin I High Sens < 3.5 (<3.5-35.0) ng/L Total Protein 6.8 (6.5-8.0) g/dL Albumin 4.1 (3.5-5.0) g/dL ECG Data Interpretation: Normal Sinus rhythm. Vent 65, MD 170, QRS 88. QTC 428. negative stemi Discharge Plan Discharge Clinical Impression: Muscle strain Patient Disposition: Home, Self-Care Instructions: Muscle Strain (ED) Additional Instructions: Return to the ED for any redness, swelling, fluctuant mass, chest pain, shortne ss of breath, shortness of breath on inspiration, calf pain, coughing up blood, fever, chills, severe abdominal pain, or any other concerning symptoms. Please follow-up with her primary care provider. EKG and blood work came back normal. Chest CT Prescriptions: No Action hydroxyzine HCl 25 mg tablet 25 mg PO BID PRN (Reason: anxiety) Qty: 7 RF: 0 ketorolac 10 mg tablet 10 mg PO Q6H PRN (Reason: pain) 5 Days Qty: 20 RF: 0 lorazepam [Ativan] 1 mg tablet 1 mg PO BEDTIME PRN (Reason: anxiety) Qty: 10 RF: 0 ibuprofen 600 mg tablet 600 mg PO Q8H PRN (Reason: pain) Qty: 30 RF: 0 Interventions: ED Discharge Assessment Last Done: 11/17/20 15:06 Discharge Date/Time: 11/17/20 15:07 Print Language: [place]
== END 2020-11-17 15:07 | disposition home or self-care (01) ==
PROVIDERS: Physician Assistant; Emergency Provider Emergency Medicine Emergency Medical Services
DX: S39.011A Strain of muscle, fascia and tendon of abdomen, initial encounter (principal); R10.9 Unspecified abdominal pain; X58.XXXA Exposure to other specified factors, initial encounter; Y93.9 Activity, unspecified; Y92.9 Unspecified place or not applicable; Y99.9 Unspecified external cause status; Z79.899 Other long term (current) drug therapy
CPT/HCPCS: 36415; 71250; 74176; 80053; 84484; 85025; 93005; 99283; 99284

== ENCOUNTER 2020-11-23 09:14 | Emergency (ER) | payer OTHER, SELFPAY ==
--- NOTE | ~2020-11-23 | CT_ITS ---
EXAMINATION: CT HEAD WITHOUT CONTRAST CLINICAL INFORMATION: Headache, dizziness. COMPARISON: None TECHNIQUE: Contiguous axial imaging was performed from the skull base to vertex without intravenous administration of contrast. Coronal and sagittal reformatted images were obtained. This CT examination was performed using dose optimization techniques as appropriate, variously including the following: *Automated exposure control *Adjustment of mA and/or kV according to patient size (this includes techniques or standardized protocols for targeted exams where dose is matched to indication/reason for exam; i.e. extremities or head) *Use of iterative reconstruction technique DLP: 676 mGy-cm FINDINGS: There is no evidence of acute intracranial hemorrhage or territorial infarction. No abnormal mass effect or midline shift is seen. [place] to white matter differentiation is well preserved. No extra-axial fluid collections are identified. The ventricles are normal in size. There is no abnormal attenuation within the brain parenchyma. The osseous structures and soft tissues are normal. The mastoid air cells and visualized portions of the paranasal sinuses are well aerated. CT/CT head/brain wo con IMPRESSION: No acute intracranial pathology.
--- NOTE | ~2020-11-23 | XR_ITS ---
EXAMINATION: XR CHEST CLINICAL INFORMATION: Chest pain. COMPARISON: 11/15/2020 chest radiographs. TECHNIQUE: 2 views of the chest were obtained. FINDINGS: Minimal biapical pleural thickening and scarring is again seen without significant change. The lungs otherwise clear. The heart and mediastinal structures are unremarkable. The osseous structures are unremarkable. XR/XR chest 2V IMPRESSION: No acute cardiopulmonary process.
--- NOTE | 2020-11-23 09:21 | ECG_ITS ---
Test Reason : CP Blood Pressure : / mmHG Vent. Rate : 079 BPM Atrial Rate : 079 BPM P-R Int : 166 ms QRS Dur : 084 ms QT Int : 370 ms P-R-T Axes : 069 035 052 degrees QTc Int : 424 ms Normal sinus rhythm with sinus arrhythmia Normal ECG When compared with ECG of 17-NOV-2020 13:09, No significant change was found Referred By: Generic ED Physician Electronically Signed By:MELY WHITE
[2020-11-23 09:37] VITALS: BP 113/75; PULSE 89; RESP 18; TEMP 36.9; O2SAT 98; BMI 25.7
--- NOTE | 2020-11-23 09:54 | ED.GENADULT ---
HPI - General Adult General Chief complaint: General Medical Stated complaint: CHEST PAIN Time Seen by Provider: 11/23/20 09:22 Source: patient Mode of arrival: ambulatory Limitations: no limitations History of Present Illness HPI narrative: 30-year-old male is here today for complaining have similar symptoms of headache, dizziness, palpitation. Patient reports that the symptoms started over a month ago, was seen by PCP and in the ER in the last month and a half. Patient denies any stress at home or at work. Patient reports that sometimes he will be sitting and he feels like he is going to pass out. Patient had CT of the chest and abdomen done in the past with no abnormal findings. Patient denies actually ever having a syncopal episode. Denies melena, hematochezia, unintentional weight loss or ribbon like stools. His H&H was 12.3 and 37.8 on November 17. Patient denies SOB, CP. Patient has been on methadone program for the last 4 years. He is on a taper right now 1 mg per week. Current dose is 60 mg per day and he took it this morning. Onset (ago): week(s) Location: head Radiation: non-radiation Severity: mild Related Data Home Medications Medication Instructions Recorded Confirmed methadone 5 mg/5 mL oral solution 60 mg PO DAILY 11/23/20 11/23/20 Previous Rx's Medication Instructions Recorded lorazepam 1 mg tablet (Ativan) 1 mg PO BEDTIME PRN #10 tab 10/15/20 hydroxyzine HCl 25 mg tablet 25 mg PO BID PRN #7 tab 10/26/20 ketorolac 10 mg tablet 10 mg PO Q6H PRN 5 Days #20 tab 10/26/20 ibuprofen 600 mg tablet 600 mg PO Q8H PRN #30 tab 11/15/20 Allergies Allergy/AdvReac Type Severity Reaction Status Date / Time No Known Allergies Allergy Verified 11/17/20 12:17 Review of Systems Review of Systems: Constitutional : No Weight loss, No Fever, No Chills, No Night Sweats, No Fatigue, No Malaise ENT/Mouth : No Hearing loss, No Ear Pain, No Nasal Congestion, No Sinus Pain, No Hoarseness, No sore throat, No Rhinorrhea, No Swallowing Difficulty Eyes: No Eye Pain, No Swelling, No Redness, No Foreign Body, No Discharge, No Vision Changes Cardiovascular : No Chest Pain, No SOB, No Dyspnea on Exertion, No Orthopnea, No Edema, Palpitations Respiratory : No Cough, No Sputum, No Wheezing, No Smoke Exposure, No Dyspnea Gastrointestinal : No Nausea, No Vomiting, No Diarrhea, No Constipation, No abdominal Pain, No Hematochezia, No Melena Genitourinary : no irregular bleeding, No Dysuria, No Urinary Frequency, No Hematuria, No Urinary Incontinence, No Urgency, No Flank Pain, No Urinary Flow Changes, No Hesitancy Musculoskeletal : No joint pain, No Myalgias, No Joint Swelling Skin : No Skin Lesions, No rash Neuro : No Weakness, No Numbness, No Paresthesias, No Loss of Consciousness, Dizziness, No Headache Psych : Anxiety/Panic, No Depression, No SI/HI/AH/VH, No Social Issues, Yes all other systems are reviewed and are negative PMFSH Past Medical History Medical History Anxiety COVID-19 Opiate addiction Social History Social History Alcohol intake: never Patient Tobacco Use Status: Current someday Tobacco user Advance Directives: No Advance Directives Information Provided: No Physical Exam Vital Signs: Vital Signs: Last Vital Signs Temp 98.5 F 11/23/20 09:37 Pulse 81 11/23/20 10:27 Resp 18 11/23/20 09:37 BP 91/61 11/23/20 10:27 Pulse Ox 98 11/23/20 09:37 Body Mass Index 25.7 Const: General: healthy appearing, no acute distress and well developed Nutritional Appearance: well nourished Orientation/consciousness: patient oriented x3 HENMT: Head: Yes normal to inspection, Yes normocephalic and Yes atraumatic Neck: Neck: Yes normal visual inspection, Yes full ROM and Yes trachea midline Thyroid: Thyroid normal Chest: Chest palpation & inspection: normal inspection of the chest and normal palpation of entire chest wall Resp: Effort & Inspection: normal respiratory effort and able to speak in complete sentences Auscultation: clear to auscultation bilaterally Cardio: Jugular venous distension: no JVD Rate: regular rate Rhythm: regular rhythm Heart sounds: S1 normal heart sound present and S2 normal heart sound present GI: Inspection: Yes normal to inspection and No distended Palpation (GI): Soft to palpation, nontender, no guarding and No hepatosplenomegaly present Auscultation: normal bowel sounds Skin: General skin exam: elasticity normal, turgor normal and dry skin Neuro: General: patient oriented x3 Cognition (Neuro): normal cognition Gait exam (Neuro): Normal gait present Motor exam (neuro): 5/5 motor strength present throughout Course Course Course Narrative: 30-year-old male is here today for complaining of dizziness, headache, palpitations. Patient has been seen several times in the past month and a half for same symptoms. All workup was negative. Patient reports that he is not under stress and does not know item symptoms are happening to him. Patient reports that when he is even sitting down he feels like he is going to pass out sometimes. Patient reports headache and dizziness. I will do a CT scan of the head, CBC, FBS, orthostatic vitals. Reevaluation(s) Reevaluation #1: H&H improved from week ago now is 13.1/40.7. Orthostatic vital signs done by a nurse, mildly orthostatic upon standing, however patient has no symptoms. Awaiting CT scan Reevaluation #2: Patient's CT scan back in normal. Patient reports that he still not feeling well complains of body aches. We will do COVID swab. Patient is watching videos on his phone. Reevaluation #3: COVID test is negative. Patient is tearful. He reports that he see someone at the methadone clinic. He was encouraged to seek additional counseling. Discussed with patient that his symptoms are most likely psychological. Patient does report that he occasionally feels anxious and depressed. He is not on any management for that. He is agreeable to plan. He will follow up with his primary care provider. Medical Decision Making Lab Data Result diagrams: 11/23/20 10: Labs: Lab Results 11/23/20 11/23/20 11/23/20 Range/Units 10: 10: 12:47 WBC 6.0 (4.8-10.8) X10*3/uL RBC 4.93 (4.60-5.80) X10*6/uL Hgb 13.1 L (14.0-18.0) g/dl Hct 40.7 L (42-52) % MCV 82.6 (80-98) fL MCH 26.6 L (27.0-33.0) pg MCHC 32.2 (31.0-36.0) g/dl RDW 13.7 (11.0-16.0) % Plt Count 260 (160-400) X10*3/uL MPV 10.1 (9.4-12.4) fL Immature Gran % (Auto) 0.3 (0.0-0.4) % Neut % (Auto) 66.1 (45-73) % Lymph % (Auto) 23.2 (20-40) % [place] % (Auto) 7.3 (2-11) % Eos % (Auto) 2.8 (0-4) % Baso % (Auto) 0.3 (0-2) % Lymph # (Auto) 1.4 (1.2-4.9) X10*3/uL [place] # (Auto) 0.4 (0.1-1.2) X10*3/uL Eos # (Auto) 0.2 (0.0-0.4) X10*3/uL Baso # (Auto) 0.0 (0.0-0.2) X10*3/uL Abs Immat Gran (auto) 0.02 (0.00-0.03) X10*3/uL Absolute Neuts (auto) 4.0 (2.0-8.3) X10*3/uL Absolute Nucleated RBC 0.000 (0.0-0.012) X10*3/uL Nucleated RBC % (auto) 0.0 (0.0-0.2) /100WBC Fasting Glucose 91 (60-99) mg/dL COVID-19 (BRYAN) Negative (Negative) COVID-19 Clin Com See Note Imaging Data CT scan - head: Attestation: I personally reviewed and interpreted this imaging study as follows: Radiologist's impression: FINDINGS: There is no evidence of acute intracranial hemorrhage or territorial infarction. No abnormal mass effect or midline shift is seen. [place] to white matter differentiation is well preserved. No extra-axial fluid collections are identified. The ventricles are normal in size. There is no abnormal attenuation within the brain parenchyma. The osseous structures and soft tissues are normal. The mastoid air cells and visualized portions of the paranasal sinuses are well aerated. ? Discharge Plan Discharge Clinical Impression: Generalized anxiety disorder Headache Qualifiers: Headache type: other headache syndrome Qualified Code(s): G44.89 - Other headache syndrome Patient Disposition: Home, Self-Care Instructions: Generalized Anxiety Disorder (ED), Panic Disorder (ED) Additional Instructions: You were seen here today for complaining of palpitation, dizziness. Your CT scan of the head was negative for any acute findings. Your blood work was normal. Your COVID test was also negative. Please follow-up with your primary care provider for referral to therapist. You might need to take something for depression or anxiety. You may return to emergency department if her symptoms will get worse or if your experience any additional concerning symptoms Prescriptions: No Action hydroxyzine HCl 25 mg tablet 25 mg PO BID PRN (Reason: anxiety) Qty: 7 RF: 0 ketorolac 10 mg tablet 10 mg PO Q6H PRN (Reason: pain) 5 Days Qty: 20 RF: 0 lorazepam [Ativan] 1 mg tablet 1 mg PO BEDTIME PRN (Reason: anxiety) Qty: 10 RF: 0 ibuprofen 600 mg tablet 600 mg PO Q8H PRN (Reason: pain) Qty: 30 RF: 0 methadone 5 mg/5 mL Solution 60 mg PO DAILY RF: 0 Referrals: Edwin Guaman MD [Physician] - 2 days (Referral to psychiatric management questions depression and anxiety) Stand Alone Forms: Work/School Release Interventions: ED Discharge Assessment Last Done: 11/23/20 13:33 Discharge Date/Time: 11/23/20 13:34
[2020-11-23 10:25] VITALS: BP 100/66; PULSE 55
[2020-11-23 10:25] LABS: MANUAL DIFF FLAG NO
[2020-11-23 10:26] VITALS: BP 104/67; PULSE 65
[2020-11-23 10:27] VITALS: BP 91/61; PULSE 81
[2020-11-23 10:29] LABS: Basophils Percent Auto 0.3 % (0-2); Eosinophils Absolute Auto 0.2 X10*3/uL (0.0-0.4); Eosinophils Percent Auto 2.8 % (0-4); Hematocrit 40.7 % (42-52); Hemoglobin 13.1 g/dl (14.0-18.0); Imm Gran Abs Auto 0.02 X10*3/uL (0.00-0.03); Imm Gran Pct Auto 0.3 % (0.0-0.4); Lymphocytes Absolute Auto 1.4 X10*3/uL (1.2-4.9); Lymphocytes Percent Auto 23.2 % (20-40); Mean Corpuscular HGB Conc 32.2 g/dl (31.0-36.0); Mean Corpuscular Hemoglobin 26.6 pg (27.0-33.0); Mean Corpuscular Volume 82.6 fL (80-98); Mean Platelet Volume 10.1 fL (9.4-12.4); Monocytes Absolute Auto 0.4 X10*3/uL (0.1-1.2); Monocytes Percent Auto 7.3 % (2-11); Neutrophils Percent Auto 66.1 % (45-73); Platelet Count 260 X10*3/uL (160-400); Red Blood Count 4.93 X10*6/uL (4.60-5.80); Red Cell Distribution Width 13.7 % (11.0-16.0)
[2020-11-23 10:40] LABS: Glucose Fasting 91 mg/dL (60-99)
[2020-11-23 13:10] LABS: COVID-19 Test Negative (Negative)
== END 2020-11-23 13:34 | disposition home or self-care (01) ==
PROVIDERS: Nurse Practitioner Family; Emergency Provider Emergency Medicine
DX: R07.9 Chest pain, unspecified (principal); G44.89 Other headache syndrome; F41.1 Generalized anxiety disorder; F43.0 Acute stress reaction; Z20.822 Contact with and (suspected) exposure to COVID-19; Z79.899 Other long term (current) drug therapy; F17.200 Nicotine dependence, unspecified, uncomplicated; Z71.6 Tobacco abuse counseling
CPT/HCPCS: 36415; 70450; 71046; 82947; 85025; 87635; 93005; 99283; 99284

== ENCOUNTER 2021-02-26 15:40 | Emergency (ER) | payer OTHER, SELFPAY | END 2021-02-26 18:17 | disposition left against medical advice (07) | PROVIDERS: Emergency Provider Emergency Medicine | DX: F41.9 Anxiety disorder, unspecified (principal) ==

== ENCOUNTER 2021-07-01 05:30 | Emergency (ER) | payer OTHER, SELFPAY ==
--- NOTE | ~2021-07-01 | XR_ITS ---
EXAMINATION: XR CHEST CLINICAL INFORMATION: Chest pain COMPARISON: None TECHNIQUE: Frontal view of the chest was obtained. FINDINGS: No significant abnormality is noted involving the heart, lungs, mediastinum, bony thorax or soft tissues. XR/XR chest 1V IMPRESSION: No acute cardiopulmonary process.
[2021-07-01 05:37] VITALS: BP 124/75; PULSE 93; RESP 16; TEMP 36.6; O2SAT 99; BMI 27.1
[2021-07-01 06:07] VITALS: BP 119/78; PULSE 92; RESP 16; TEMP 36.7; O2SAT 96
--- NOTE | 2021-07-01 06:07 | ECG_ITS ---
Test Reason : CHEST PAIN Blood Pressure : / mmHG Vent. Rate : 090 BPM Atrial Rate : 090 BPM P-R Int : 170 ms QRS Dur : 078 ms QT Int : 376 ms P-R-T Axes : 091 019 030 degrees QTc Int : 459 ms Normal sinus rhythm Normal ECG When compared with ECG of 23-NOV-2020 09:16, No significant change was found Referred By: Chelsie Burnett Electronically Signed By:DANUTA VELASQUEZ MD
--- NOTE | 2021-07-01 06:09 | ED_ITS ---
HPI - General Adult General Chief complaint: General Medical Stated complaint: Headache/Chest pain/Palpitations Time Seen by Provider: 07/01/21 06:01 Source: patient Mode of arrival: ambulatory Limitations: no limitations History of Present Illness HPI narrative: Patient comes to the emergency room complaining of left-sided chest pain which has been intermittent for over a year. Patient states that he has history anxiety. Patient also reports of episodes of rapid heart rate, thinks is secondary to anxiety, but not feeling anxious at this time. Patient also complaining of feeling slightly swollen on the left side of his neck but he is not sure. Patient denies any dental pain. Related Data Home Medications Medication Instructions Recorded Confirmed methadone 5 mg/5 mL oral solution 60 mg PO DAILY 11/23/20 11/23/20 Previous Rx's Medication Instructions Recorded lorazepam 1 mg tablet (Ativan) 1 mg PO BEDTIME PRN #10 tab 10/15/20 hydroxyzine HCl 25 mg tablet 25 mg PO BID PRN #7 tab 10/26/20 ketorolac 10 mg tablet 10 mg PO Q6H PRN 5 Days #20 tab 10/26/20 ibuprofen 600 mg tablet 600 mg PO Q8H PRN #30 tab 11/15/20 Allergies Allergy/AdvReac Type Severity Reaction Status Date / Time No Known Allergies Allergy Verified 11/17/20 12:17 Review of Systems Review of Systems: Constitutional : No Weight loss, No Fever, No Chills, No Night Sweats, No Fatigue, No Malaise ENT/Mouth : No Hearing loss, No Ear Pain, No Nasal Congestion, No Sinus Pain, No Hoarseness, No sore throat, No Rhinorrhea, No Swallowing Difficulty Eyes: No Eye Pain, No Swelling, No Redness, No Foreign Body, No Discharge, No Vision Changes Cardiovascular : Complaining of intermittent chest pain for over a year No SOB, No Dyspnea on Exertion, No Orthopnea, No Edema, complaining of Palpitations possibly secondary to anxiety Respiratory : No Cough, No Sputum, No Wheezing, No Smoke Exposure, No Dyspnea Gastrointestinal : No Nausea, No Vomiting, No Diarrhea, No Constipation, No abdominal Pain, No Hematochezia, No Melena Genitourinary : no irregular bleeding, No Dysuria, No Urinary Frequency, No Hem aturia, No Urinary Incontinence, No Urgency, No Flank Pain, No Urinary Flow Changes, No Hesitancy Musculoskeletal : No joint pain, No Myalgias, No Joint Swelling Skin : No Skin Lesions, No rash Neuro : No Weakness, No Numbness, No Paresthesias, No Loss of Consciousness, No Dizziness, No Headache Psych : Patient has history of anxiety but does not feel anxious at this time, No Depression, No SI/HI/AH/VH, No Social Issues, Heme/Lymph: No Bruising, No Bleeding,No Lymphadenopathy Endocrine : No Polyuria, No Polydipsia, No Temperature Intolerance [facility] Past Medical History Medical History Anxiety COVID-19 Opiate addiction Social History Social History Alcohol intake: never Patient Tobacco Use Status: Never used Tobacco Use of substances other than those prescribed or required for medical reasons: Unknown Advance Directives: No Physical Exam ED Vital Signs: Vital Signs - 24 hr 07/01/21 05:37 07/01/21 06:07 07/01/21 07:02 Temperature 97.9 F 98.1 F 97.8 F Pulse Rate 93 92 81 Respiratory Rate 16 16 14 Blood Pressure 124/75 119/78 106/69 Pulse Oximetry 99 96 98 BMI result Body Mass Index 27.1 Const Other: Appearance: Alert. Oriented X3. No acute distress. Eyes: Pupils equal, round and reactive to light. ENT: Pharynx normal. Patient has dentures Neck: Normal inspection. Neck supple. No lymph nodes noted. No crepitus CVS: Normal heart rate and rhythm. Pulses normal. Normal S1 and S2 Respiratory: No respiratory distress. Breath sounds normal. No Wheezing. No rales Abdomen: Soft and nontender. No rigidity. No distention. Skin: Skin warm and dry. Normal skin color. Normal skin turgor. Extremities: No lower extremity edema. No Lacerations. No Rash Neuro: Oriented X 3. No motor deficit. No sensory deficit. Moving all extremities. No slurred speech. CN 2 through 12 grossly intact Psych: calm, cooperative, normal affect Course Course Course Narrative: Patient's neck is symmetric, no palpable lymph nodes. Patient's EKG shows no acute abnormalities, troponin negative. Chest x-ray and TSH pending. Anticipating patient to be discharged home. Sign- out given to Dr. Patel Medical Decision Making Lab Data Result diagrams: 07/01/21 06:23 07/01/21 06:23 Labs: Lab Results 07/01/21 07/01/21 07/01/21 Range/Units 06:23 06:23 06:23 WBC 6.0 (4.8-10.8) X10*3/uL RBC 4.73 (4.60-5.80) X10*6/uL Hgb 12.7 L (14.0-18.0) g/dl Hct 39.3 L (42.0-52.0) % MCV 83.1 (80.0-98.0) fL MCH 26.8 L (27.0-33.0) pg MCHC 32.3 (31.0-36.0) g/dl RDW 13.3 (11.0-16.0) % Plt Count 259 (160-400) X10*3/uL MPV 9.6 (9.4-12.4) fL Immature Gran % (Auto) 0.2 (0.0-0.4) % Neut % (Auto) 70.1 (45-73) % Lymph % (Auto) 18.7 L (20-40) % [place] % (Auto) 7.7 (2-11) % Eos % (Auto) 3.0 (0-4) % Baso % (Auto) 0.3 (0-2) % Lymph # (Auto) 1.1 L (1.2-4.9) X10*3/uL [place] # (Auto) 0.5 (0.1-1.2) X10*3/uL Eos # (Auto) 0.2 (0.0-0.4) X10*3/uL Baso # (Auto) 0.0 (0.0-0.2) X10*3/uL Abs Immat Gran (auto) 0.01 (0.00-0.03) X10*3/uL Absolute Neuts (auto) 4.2 (2.0-8.3) x10*3/uL Absolute Nucleated RBC 0.000 (0.0-0.012) X10*3/uL Nucleated RBC % (auto) 0.0 (0.0-0.2) /100WBC Smear Tech's Comments VERIFIED Sodium 139 (135-145) mmol/L Potassium 3.8 (3.3-5.1) mmol/L Chloride 103 (96-108) mmol/L Carbon Dioxide 28 (22-29) mmol/L Anion Gap 12 (12-20) BUN 14 (9-16) mg/dL Creatinine 0.87 (0.5-1.4) mg/dL Estim Creat Clear Calc 133.7 Estimated GFR > 60 Random Glucose 73 (60-115) mg/dL Calcium 9.3 (8.4-10.2) mg/dL Total Bilirubin 0.2 (0.0-1.0) mg/dL Direct Bilirubin 0.2 (0.0-0.5) mg/dL AST 20 (5-37) U/L ALT 17 (0-40) U/L Alkaline Phosphatase 73 (39-117) U/L Troponin I High Sens < 3.5 (<3.5-35.0) ng/L Total Protein 7.2 (6.5-8.0) g/dL Albumin 4.2 (3.5-5.0) g/dL TSH (0.32-4.0) uIU/mL 07/01/21 Range/Units 06:23 WBC (4.8-10.8) X10*3/uL RBC (4.60-5.80) X10*6/uL Hgb (14.0-18.0) g/dl Hct (42.0-52.0) % MCV (80.0-98.0) fL MCH (27.0-33.0) pg MCHC (31.0-36.0) g/dl RDW (11.0-16.0) % Plt Count (160-400) X10*3/uL MPV (9.4-12.4) fL Immature Gran % (Auto) (0.0-0.4) % Neut % (Auto) (45-73) % Lymph % (Auto) (20-40) % [place] % (Auto) (2-11) % Eos % (Auto) (0-4) % Baso % (Auto) (0-2) % Lymph # (Auto) (1.2-4.9) X10*3/uL [place] # (Auto) (0.1-1.2) X10*3/uL Eos # (Auto) (0.0-0.4) X10*3/uL Baso # (Auto) (0.0-0.2) X10*3/uL Abs Immat Gran (auto) (0.00-0.03) X10*3/uL Absolute Neuts (auto) (2.0-8.3) x10*3/uL Absolute Nucleated RBC (0.0-0.012) X10*3/uL Nucleated RBC % (auto) (0.0-0.2) /100WBC Smear Tech's Comments Sodium (135-145) mmol/L Potassium (3.3-5.1) mmol/L Chloride (96-108) mmol/L Carbon Dioxide (22-29) mmol/L Anion Gap (12-20) BUN (9-16) mg/dL Creatinine (0.5-1.4) mg/dL Estim Creat Clear Calc Estimated GFR Random Glucose (60-115) mg/dL Calcium (8.4-10.2) mg/dL Total Bilirubin (0.0-1.0) mg/dL Direct Bilirubin (0.0-0.5) mg/dL AST (5-37) U/L ALT (0-40) U/L Alkaline Phosphatase (39-117) U/L Troponin I High Sens (<3.5-35.0) ng/L Total Protein (6.5-8.0) g/dL Albumin (3.5-5.0) g/dL TSH 1.38 (0.32-4.0) uIU/mL Discharge Plan Discharge Clinical Impression: Atypical chest pain Patient Disposition: Home, Self-Care Instructions: Chest Pain (ED) Additional Instructions: Please follow-up with your primary care physician tomorrow. If you have any worsening or new symptoms, please return to the emergency room or call 911 Prescriptions: No Action hydroxyzine HCl 25 mg tablet 25 mg PO BID PRN (Reason: anxiety) Qty: 7 0RF ketorolac 10 mg tablet 10 mg PO Q6H PRN (Reason: pain) 5 Days Qty: 20 0RF Rx Instructions: Patient received Toradol here in the emergency room. lorazepam [Ativan] 1 mg tablet 1 mg PO BEDTIME PRN (Reason: anxiety) Qty: 10 0RF ibuprofen 600 mg tablet 600 mg PO Q8H PRN (Reason: pain) Qty: 30 0RF methadone 5 mg/5 mL Solution 60 mg PO DAILY 0RF
[2021-07-01 06:32] LABS: Basophils Percent Auto 0.3 % (0-2); Hematocrit 39.3 % (42.0-52.0); Imm Gran Abs Auto 0.01 X10*3/uL (0.00-0.03); Imm Gran Pct Auto 0.2 % (0.0-0.4); MANUAL DIFF FLAG SCAN; PLT CLUMP 1; SCAN SMEAR FLAG 1
[2021-07-01 06:34] LABS: Eosinophils Absolute Auto 0.2 X10*3/uL (0.0-0.4); Hemoglobin 12.7 g/dl (14.0-18.0); Lymphocytes Absolute Auto 1.1 X10*3/uL (1.2-4.9); Lymphocytes Percent Auto 18.7 % (20-40); Mean Corpuscular HGB Conc 32.3 g/dl (31.0-36.0); Mean Corpuscular Hemoglobin 26.8 pg (27.0-33.0); Mean Corpuscular Volume 83.1 fL (80.0-98.0); Mean Platelet Volume 9.6 fL (9.4-12.4); Monocytes Absolute Auto 0.5 X10*3/uL (0.1-1.2); Monocytes Percent Auto 7.7 % (2-11); Neutrophils Absolute Auto 4.2 x10*3/uL (2.0-8.3); Neutrophils Percent Auto 70.1 % (45-73); Red Blood Count 4.73 X10*6/uL (4.60-5.80); Red Cell Distribution Width 13.3 % (11.0-16.0)
[2021-07-01 06:39] LABS: Platelet Count 259 X10*3/uL (160-400)
[2021-07-01 06:47] LABS: Alanine Aminotransferase 17 U/L (0-40); Albumin Level 4.2 g/dL (3.5-5.0); Alkaline Phosphatase 73 U/L (39-117); Anion Gap 12 (12-20); Aspartate Amino Transferase 20 U/L (5-37); Bilirubin Direct 0.2 mg/dL (0.0-0.5); Bilirubin Total 0.2 mg/dL (0.0-1.0); Blood Urea Nitrogen 14 mg/dL (9-16); Calcium 9.3 mg/dL (8.4-10.2); Carbon Dioxide 28 mmol/L (22-29); Chloride 103 mmol/L (96-108); Creatinine Clr Calc Pharmacy 133.7; Estimated Glomerular Filt Rate > 60; Glucose Random 73 mg/dL (60-115); Potassium 3.8 mmol/L (3.3-5.1); Sodium 139 mmol/L (135-145); Total Protein 7.2 g/dL (6.5-8.0)
[2021-07-01 06:50] LABS: SLIDE REVIEW VERIFIED
[2021-07-01 06:51] LABS: Troponin-I High Sensitivity < 3.5 ng/L (<3.5-35.0)
[2021-07-01 07:02] VITALS: BP 106/69; PULSE 81; RESP 14; TEMP 36.6; O2SAT 98
[2021-07-01 07:05] LABS: TSH reflex Free T4 1.38 uIU/mL (0.32-4.0)
[2021-07-01 08:27] VITALS: BP 101/62; PULSE 66; RESP 15; TEMP 36.4; O2SAT 97
== END 2021-07-01 08:59 | disposition home or self-care (01) ==
PROVIDERS: Emergency Medicine; Emergency Provider Emergency Medicine
DX: R07.89 Other chest pain (principal); R51.9 Headache, unspecified; Z79.899 Other long term (current) drug therapy; Z20.822 Contact with and (suspected) exposure to COVID-19
CPT/HCPCS: 36415; 71045; 80048; 80076; 84443; 84484; 85025; 93005; 99283; 99284

== ENCOUNTER 2023-02-01 08:37 | Outpatient (AMB) | payer BC, SELFPAY ==
[2023-02-01 09:04] VITALS: BP 118/72; PULSE 96; TEMP 36.6; O2SAT 97; BMI 27.4
--- NOTE | 2023-02-01 09:04 | MHC.OFFWIV ---
Intake Vital Signs 02/01/23 09:04 Height 6 ft Weight 91.626 kg BMI 27.4 BP 118/72 Blood Pressure Location Lt brachial Position Sitting Pulse 96 Pulse Source Pulse Oximeter Temp 97.8 F Temp Source Temporal Artery Scan Pulse Oximetry (%) 97 Oxygen Delivery Method Room Air Intake Visit Reasons: EP headache sore throat covid exposed [id number] Intake Note: pt is here today for headache sore throat covid exposed started wednesday Patient Tobacco Use Status: Never used Tobacco Allergies No Known Allergies Allergy (Verified 02/01/23 09:05) Do you need a note to return to daycare/school/sports/work: No HPI HPI Comments History of Present Illness Details 32 -year-old male who presents with fatigue, malaise, myalgias, sore throat, headache, subjective fevers and chills that started 2 days ago. + known sick contacts with covid.? Denies chest pain, shortness of breath, nausea, vomiting, abdominal pain vision change, dizziness, weakness, changes in bowel or urinary habits Physical exam benign History and physical exam concerning for viral illness versus pharyngitis versus flu versus COVID versus RSV.? Unlikely pneumonia, ACS, dissection, pulmonary embolism, acute respiratory distress. Headache likely secondary to viral illness. Unlikely intracranial hemorrhage, stroke, posterior stroke.. No signs of retropharyngeal, peritonsillar abscess, epiglottitis or threat to airway. Plan at this time viral testing will discharge patient home with supportive measures.? Educated patient on diagnosis and treatment plan, answered all question, patient verbalizes understanding.? At this time patient will be discharged home, advised to return with new or worsening symptoms.? Educated on worrisome signs and symptoms and when to return.? At this time I feel comfortable discharge home. [facility] Medical History COVID-19 Anxiety Opiate addiction Social History Alcohol intake: never Patient Tobacco Use Status: Never used Tobacco Review of Systems Const Details: Constitutional : No Weight loss, No Fever, No Chills, + Fatigue, + Malaise ENT/Mouth : + sore throat, No Rhinorrhea Eyes: No Eye Pain, No Swelling, No Redness Cardiovascular : No Chest Pain, No SOB, No Dyspnea on Exertion, No Orthopnea, No Edema, No Palpitations Respiratory : No Cough, No Sputum, No Wheezing Gastrointestinal : No Nausea, No Vomiting, No Diarrhea, No Constipation, No abdominal Pain, No Hematochezia, No Melena Genitourinary : No Dysuria, No Urinary Frequency, No Hematuria, Musculoskeletal : No joint pain, + Myalgias, No Joint Swelling Skin : No Skin Lesions, No rash Neuro : No Weakness, No Numbness, No Dizziness, + Headache Psych : No Anxiety/Panic, No Depression All other systems reviewed and are negative All systems reviewed & are unremarkable except as noted in HPI and below Physical Exam Vital Signs: Last Vital Signs Temp 97.8 F 02/01/23 09:04 Pulse 96 02/01/23 09:04 BP 118/72 02/01/23 09:04 Pulse Ox 97 02/01/23 09:04 Oxygen Delivery Method Room Air 02/01/23 09:04 BMI result Body Mass Index 27.4 Vital signs stable Appearance: Alert.? Oriented X3.? No acute distress.? Head: Normocephalic, atraumatic, no step-offs or deformities Eyes: Pupils equal, round and reactive to light.? ENT: Pharynx normal. Uvula midline. Tonsils normal no exudate, abscess. Speaking in full sentences controlling secretions well? Neck: Normal inspection.? Neck supple.? CVS: Normal heart rate and rhythm.? Pulses normal.? Respiratory: No respiratory distress.? Breath sounds normal.? Abdomen: Soft and nontender.? Skin: Skin warm and dry.? Normal skin color.? Normal skin turgor.? Extremities: No lower extremity edema.? No calf ttp. 5/5 strength to bilateral upper and lower extremities Neuro: Oriented X 3.? No motor deficit.? No sensory deficit. CN 2-12 intact . Normal [id number], [id number] steady tandem gait normal coordination NIH stroke scale 0 Assessment & Plan Assessment & Plan (1) Viral illness: Code(s): B34.9 - Viral infection, unspecified Plan Take your medications as prescribed. If you were prescribed antibiotics today, it is important that you take your medication to their entirety, do not skip any doses, do not finish them early. Follow-up with your primary care provider this week. Return to the emergency department with new or worsening symptoms. Such as fevers, chills, chest pain, shortness of breath, nausea, vomiting, dizziness, headache, vision changes, lethargy In case of emergency call 911 Orders: Orders SARS-CoV2/FLU/RSV Today B34.9 - Viral infection, unspecified Coding Level of Care Code Est Pt Level 3 (62126) Diagnoses Viral illness B34.9
== END 2023-02-01 09:31 | disposition home or self-care (01) ==
PROVIDERS: Visit Provider Physician Assistant
DX: B34.9 Viral infection, unspecified (principal)
CPT/HCPCS: 99213

== ENCOUNTER 2023-02-01 13:36 | Outpatient (REF) | payer BC, OTHER, SELFPAY ==
[2023-02-01 14:39] LABS: Influenza A PCR NEGATIVE (Negative); Influenza B PCR NEGATIVE (Negative); Resp Syncy Virus RNA Qual PCR NEGATIVE (Negative); SARS COV2 PCR INHOUSE POSITIVE (Negative)
== END 2023-02-01 13:37 | disposition home or self-care (01) ==
LOC: HO.LNP 13:36
PROVIDERS: Visit Provider Physician Assistant
DX: Z11.52 Encounter for screening for COVID-19 (principal); Z20.822 Contact with and (suspected) exposure to COVID-19; B34.9 Viral infection, unspecified
CPT/HCPCS: 0241U